=== PATIENT | female | born 1950 | race Caucasian/White ===

== ENCOUNTER 2021-06-01 08:30 | Inpatient (IN) | payer OTHER ==
[~2021-06-01] VITALS: Ht 167.6 cm; Wt 73.9 kg
[~2021-06-01 08:30] MED LIST: NABUMETONE500 MG PO; PERCOCET 5/3251 TAB PO
[2021-06-01] MEDS ORDERED: COZAAR50 MG PO (10:04)
[2021-06-01] MEDS ORDERED: ATORVASTATIN CA20 MG PO (10:04)
[2021-06-01] MEDS ORDERED: ARICEPT5 MG PO (10:05)
[2021-06-01] MEDS ORDERED: HYDROCHLOROTH12.5 MG PO (10:05)
[2021-06-01] MEDS ORDERED: LEVO-T112 MCG PO (10:05)
[2021-06-01] MEDS ORDERED: SINGULAIR 10MG10 MG PO (10:06)
[2021-06-01] MEDS ORDERED: NAMENDA10 MG PO (10:24)
[2021-06-09] MEDS ORDERED: FELODIPINE ER2.5 MG (08:40)
[2021-06-09] MEDS ORDERED: MELOXICAM7.5 MG (08:41)
[2021-06-09] MEDS ORDERED: AMOX-CLAV 875-1 EAC1 (08:41)
== END 2021-06-09 18:15 | DRG 470 ==
LOC: SURH 06-07 08:30 → O/R 06-07 09:08 → SURH 06-07 13:30
PROVIDERS: ADMIT Orthopaedic Surgery; ATTEND Orthopaedic Surgery
PROC: 0SRC0J9 Replacement of Right Knee Joint with Synthetic Substitute, Cemented, Open Approach (ICD-10-PCS; principal; 2021-06-07 13:30)
DX: M17.11 Unilateral primary osteoarthritis, right knee (principal); M85.661 Other cyst of bone, right lower leg